=== PATIENT | female | born 1950 | race Caucasian/White ===

== ENCOUNTER → 2017-02-21 | Outpatient (CLI) | payer MEDICARE | LOC: OD 11:08 | PROVIDERS: ATTEND Physician Assistant | DX: M79.672 Pain in left foot (principal) ==

== ENCOUNTER → 2017-05-21 | Outpatient (CLI) | payer MEDICARE ==
--- NOTE | 2017-05-21 10:21 | RADIOLOGY REPORT (SQ) ---
EXAM DESCRIPTION: CT HEAD WITHOUT COMPLETED DATE/TIME: 05/21/2017 9:47 am REASON FOR STUDY: TREMOR R25.1 TREMOR, UNSPECIFIED COMPARISON: None. TECHNIQUE: Axial images acquired through the brain without intravenous contrast. Images reviewed wi th bone, brain and subdural windows. Images stored on PACS. All CT scanners at this facility use dose modulation, iterative reconstruction, and/or weight based d osing when appropriate to reduce radiation dose to as low as reasonably achievable (ALARA). [facility]: Dose Right [facility]: CareDose [facility]: Dose Right [facility]: Teradose 4D [facility]: AppNexus RADIATION DOSE: Up-to-date CT equipment and radiation dose reduction techniques were employed. CTDIv ol: 49.0 mGy. DLP: 881 mGy-cm. mGy. LIMITATIONS: None. FINDINGS: VENTRICLES: Normal size and contour. CEREBRUM: There is a small lacunar infarct in the left thalamus. No masses. No hemorrhage. No mid line shift. Normal enamorado/white matter differentiation. No evidence for acute infarction. CEREBELLUM: No masses. No hemorrhage. No alteration of density. No evidence for acute infarction. EXTRAAXIAL SPACES: No fluid collections. No masses. ORBITS AND GLOBE: No intra- or extraconal masses. Normal contour of globe without masses. CALVARIUM: No fracture. PARANASAL SINUSES: No fluid or mucosal thickening. SOFT TISSUES: No mass or hematoma. OTHER: No other significant finding. IMPRESSION: Lacunar infarct in the left thalamus. There is no acute intracranial pathology. TECHNICAL DOCUMENTATION: JOB ID: [id number] Quality ID # [id number]: Final reports with documentation of one or more dose reduction techniques (e.g., Au tomated exposure control, adjustment of the mA and/or kV according to patient size, use of iterative reconstruction technique) 2010 [place]- All Rights Reserved
== END ==
LOC: RAD 09:33
PROVIDERS: ATTEND Family Medicine
DX: R25.1 Tremor, unspecified (principal)
CPT/HCPCS: 70450

== ENCOUNTER → 2017-12-20 | Outpatient (CLI) | payer MEDICARE ==
--- NOTE | 2017-12-20 16:35 | WOMENS IMAGING REPORT ---
EXAM DESCRIPTION: 3D SCREENING MAMMO BILAT COMPLETED DATE/TIME: 12/20/2017 1:17 pm REASON FOR STUDY: SCREENING MAMMO Z12.31 ENCNTR SCREEN MAMMOGRAM FOR MALIGNANT NEOPLASM OF CARMELA COMPARISON: 04/22/2015 and 03/02/2014. TECHNIQUE: Standard craniocaudal and mediolateral oblique views of each breast recorded using digita l acquisition and breast tomosynthesis. LIMITATIONS: None. FINDINGS: Findings present which are benign by mammographic criteria. No suspicious masses, calcifi cations or architectural distortion. Pertinent benign findings: Benign calcifications. Read with the assistance of CAD. .[facility] - R2 Cenova Version 1.3 .[facility] - R2 Cenova Version 1.3 .[facility] - R2 Cenova Version 2.4 .[facility] - R2 Cenova Version 2.4 .[facility] - R2 Concrete Pile Driver Operator Version 9.2 Benign mammographic findings may include one or more of the following: Smooth masses, popcorn/rim/co arse calcifications, asymmetries, post-procedure changes, and lesions with long-standing stability. IMPRESSION: BENIGN MAMMOGRAPHIC FINDINGS. BIRADS 2 BREAST DENSITY: c. The breasts are heterogeneously dense, which may obscure small masses. BIRAD: 2 BENIGN FINDING(S) RECOMMENDATION: RECOMMENDATION: ROUTINE SCREENING COMMENT: The patient has been notified of the results by letter per [place] requirements. Additional no tification policies are in place for contacting patient with suspicious or incomplete findings. Quality ID #[id number]: The [employer] recommends an annual screening mammogram for women aged 40 years or over. This facility utilizes a reminder system to ensure that all patients receive reminder letters, and/or direct phone calls for appointments. This includes reminders for routine scr eening mammograms, diagnostic mammograms, or other Breast Imaging Interventions when appropriate. Th is patient will be placed in the appropriate reminder system. The [employer] (ACR) has developed recommendations for screening MRI of the breast s in certain patient populations, to be used in conjunction with mammography. Breast MRI surveillanc e may be appropriate for women with more than 20% lifetime risk of developing breast cancer as deter mined by genetic testing, significant family history of the disease, or history of mantle radiation f or Hodgkins Disease. ACR Practice Guidelines 2008. DBT Technology DBT is a type of tomographic mammography. With conventional mammography, overlapping breast tissue ma y make lesions difficult to detect, even with good compression. DBT uses an x-ray tube that rotates a round the breast, taking images at different angles. These images are then combined to create thin sl ices of the breast that the radiologist can view as a 3D reconstruction. The [id number] unit can perform full-field digital mammograms (2D imaging); or DBT (3D imaging); or both, in a combination mode that quickly performs both the mammogram and the tomosynthesis scan while the breast is still compressed. PQRS 6045F: Fluoroscopic imaging is not utilized for breast tomosynthesis. TECHNICAL DOCUMENTATION: FINDING NUMBER: (1) ASSESSMENT: (1) JOB ID: [id number] [employer]- All Rights Reserved Reading location - IP/workstation name: [email or web address]
== END ==
LOC: WI 11:24
PROVIDERS: ATTEND Obstetrics & Gynecology
DX: Z12.31 Encounter for screening mammogram for malignant neoplasm of breast (principal)
CPT/HCPCS: 77063; 77067

== ENCOUNTER 2017-12-26 06:27 | Inpatient (IN) | payer MEDICARE ==
[2017-12-26] MEDS ORDERED: LEVOFLOXACIN 750 MG/D5W RTU 750 MG/150 ML RTUPB IV ONE (06:51)
[2017-12-26] MEDS ORDERED: ALBUTEROL SULFATE 0.083% NEB 2.5 MG/3 ML AMPUL NEB ONE (06:51)
[2017-12-26] MEDS ORDERED: NORMAL SALINE 1000 ML 1,000 ML IV ONE ×2 (06:51→20:45)
--- NOTE | 2017-12-26 06:51 | ER Document Report ---
ED Respiratory Problem - General Mode of Arrival: Medic Information source: Patient, Relative TRAVEL OUTSIDE OF THE [place] IN LAST 30 DAYS: No <CAMILO MCCAULEY - Last Filed: 12/26/17 15:08> <EVELIN GRESHAM - Last Filed: 12/26/17 15:11> - General Chief Complaint: Respiratory Distress Stated Complaint: RESPIRATORY DISTRESS Time Seen by Provider: 12/26/17 06:35 Notes: Patient is a 67 year old female with a history of COPD presents to the emergency department via EMS accompanied by complaining of difficulty breathing. Patient states that she has had a non-productive cough for approximately 1-2 weeks and went to the doctor yesterday and was prescribed antibiotics. further states he called the ambulance again this morning due to the patient behaving slower than normal, incontinent and being weak at home. He states the patient had a fever of 104 and a SpO2 in the 80s at home. Patient also complains of nausea. Patient denies sore throat, diarrhea or abdominal pain. At bedside patient appears uncomfortable and is a poor historian. states he gave the patient Tylenol at home. further states he called the ambulance twice yesterday and insisted they bring the patient to the emergency room this morning due to her worsening symptoms. (CAMILO MCCAULEY) - Related Data Allergies/Adverse Reactions: latex [Latex] Allergy (Verified 12/26/17 06:37) rash amoxicillin [Amoxicillin] Adverse Reaction (Verified 12/26/17 06:37) Nausea budesonide [From Symbicort] Adverse Reaction (Verified 12/26/17 06:37) Nausea cephalexin [From Keflex] Adverse Reaction (Verified 12/26/17 06:37) Nausea formoterol [From Symbicort] Adverse Reaction (Verified 12/26/17 06:37) Nausea Penicillins Adverse Reaction (Verified 12/26/17 06:37) Nausea sulfamethoxazole [From Bactrim] Adverse Reaction (Verified 12/26/17 06:37) nausea/ weakness trimethoprim [From Bactrim] Adverse Reaction (Verified 12/26/17 06:37) nausea/ weakness erythromycin Allergy (Uncoded 12/26/17 06:37) Past Medical History - General Information source: Patient, Relative - Social History Smoking Status: Current Every Day Smoker Cigarette use (# per day): Yes Chew tobacco use (# tins/day): No Smoking Education Provided: No Frequency of alcohol use: None Family History: Reviewed & Not Pertinent - Past Medical History Cardiac Medical History: Reports: Hx Hypercholesterolemia, Hx Hypertension Neurological Medical History: Reports: Hx Migraine GI Medical History: Reports: Hx Diverticulitis Musculoskeltal Medical History: Reports Hx Arthritis Psychiatric Medical History: Reports: Hx Anxiety, Hx Depression Past Surgical History: Reports: Hx Colostomy, Hx Hysterectomy - Immunizations Immunizations up to date: Yes Hx Diphtheria, Pertussis, Tetanus Vaccination: No <CAMILO MCCAULEY - Last Filed: 12/26/17 15:08> Review of Systems - Review of Systems Constitutional: See HPI, Fever EENT: No symptoms reported Cardiovascular: No symptoms reported Respiratory: See HPI, Short of breath Gastrointestinal: No symptoms reported Genitourinary: See HPI, Incontinence Female Genitourinary: No symptoms reported Musculoskeletal: No symptoms reported Skin: No symptoms reported Hematologic/Lymphatic: No symptoms reported Neurological/Psychological: See HPI, Weakness -: Yes All other systems reviewed and negative <CAMILO MCCAULEY - Last Filed: 12/26/17 15:08> Physical Exam <CAMILO MCCAULEY - Last Filed: 12/26/17 15:08> <EVELIN GRESHAM - Last Filed: 12/26/17 15:11> - Vital signs Vitals: Temp Pulse Resp BP Pulse Ox 98.0 F 106 H 26 H 89/57 L 90 L 12/26/17 06:33 12/26/17 06:33 12/26/17 06:33 12/26/17 06:33 12/26/17 06:33 - Notes Notes: GENERAL: Appears fatigued, hoarse, slow to answer questions. HEAD: Normocephalic, atraumatic. EYES: Pupils equal, round, and reactive to light. Extraocular movements intact. ENT: Oral mucosa moist, tongue midline. NECK: Full range of motion. Supple. Trachea midline. LUNGS: Crackles and rhonchi in right lower lobe. Becomes tachypneic with minimal exertion. HEART: Regular rate and rhythm. No murmurs, gallops, or rubs. ABDOMEN: Soft, non-tender. Non-distended. Bowel sounds present in all 4 quadrants. EXTREMITIES: Moves all 4 extremities spontaneously. No edema, radial and dorsalis pedis pulses 2/4 bilaterally. No cyanosis. NEUROLOGICAL: Appears fatigued. Normal speech, hoarse voice. PSYCH: Flat affect, somewhat depressed. SKIN: Warm, dry, normal turgor. No rashes or lesions noted. (CAMILO MCCAULEY) Course - Laboratory Result Diagrams: 12/26/17 10:51 12/26/17 10:51 - Consults Dr. Bermudez Time consulted: 08:52 - Accpets patient for admission to ICU. <CAMILO MCCAULEY - Last Filed: 12/26/17 15:08> - Laboratory Result Diagrams: 12/26/17 10:51 12/26/17 10:51 <EVELIN GRESHAM - Last Filed: 12/26/17 15:11> - Re-evaluation Re-evalutation: 12/26/17 08:57 CBC shows leukopenia with white count of 1.6, there is a bandemia with 6% bands , INR slightly prolonged at 1.07, venous blood gas does not show any acidosis, PCO2 is actually surprisingly low at 27.3, likely due to her tachypnea, chemistries are abnormal with low sodium of 127.3, potassium low at 3.3, chloride low at 94, CO2 low at 17, there is acute renal failure with a BUN of 25 and creatinine 1.36, lactic acid elevated at 4.0, patient meets criteria for septic shock, patient has been started on dual antibiotic therapy in the form of vancomycin and Levaquin, penicillins and cephalosporins were not used as she is allergic to both of these, urinalysis does not show any signs of infection, chest x-ray shows moderate to large airspace opacities of the right lower and midlung field and small left perihilar opacity consistent with multifocal pneumonia. Doubt pulmonary edema given fever and ongoing cough. No indication for pressors at this time, but I will continue to consider pressors if the patient fails fluid rehydration. Discussed patient with Dr. Bermudez who agrees to admit the patient to his service in the intensive care unit. Family requests intubation should she fail BiPAP. Patient was started on BiPAP as she did not respond well to 4 L of oxygen via nasal cannula. 12/26/17 15:10 After patient had already been accepted for admission she continued to worsen, discussed with Dr. Bermudez and Dr. Calix seen, after reexamination decision was made to intubate as she was becoming more restless, more tachypneic, hypoxic despite 100% oxygen on BiPAP. Patient was intubated without difficulty. (EVELIN GRESHAM) - Vital Signs Vital signs: Temp Pulse Resp BP Pulse Ox 103.3 F H 116 H 20 84/83 L 93 12/26/17 14:00 12/26/17 14:00 12/26/17 13:17 12/26/17 14:00 12/26/17 14:00 - Laboratory Laboratory results interpreted by me: 12/26/17 12/26/17 12/26/17 06:30 06:30 06:30 WBC 1.6 L Band Neutrophils % 6 H Abs Neuts (Manual) 0.8 L VBG pCO2 VBG HCO3 Sodium 127.5 L Potassium 3.3 L Chloride 94 L Carbon Dioxide 17 L BUN 25 H Creatinine 1.36 H Est GFR ( Amer) 47 L Est GFR (Non-Af Amer) 39 L Lactic Acid 4.0 H Creatine Kinase Total Protein 5.6 L Albumin 3.4 L Urine Protein Urine Blood 12/26/17 12/26/17 12/26/17 06:30 06:30 08:15 WBC Band Neutrophils % Abs Neuts (Manual) VBG pCO2 27.3 L VBG HCO3 16.8 L Sodium Potassium Chloride Carbon Dioxide BUN Creatinine Est GFR ( Amer) Est GFR (Non-Af Amer) Lactic Acid Creatine Kinase 309 H Total Protein Albumin Urine Protein 100 H Urine Blood SMALL H - EKG Interpretation by Me Additional EKG results interpreted by me: 12/26/17 08:59 EKG shows sinus rhythm at a rate of 98, first-degree AV block, prolonged QT, no ST segment elevations or depressions, no T-wave inversions, LVH is noted per my interpretation. (EVELIN GRESHAM) Procedures - Intubation Orotracheal Time of Intubation: 10:40 Airway evaluation: Copious secretions - bloody secretions, Loose teeth, Other - edema of chords Medications: Etomidate, Versed Intubation method: Orotracheal Blade type: Mary Blade size: 4 ETT size: 8.0 ETT secured at: Gums ETT secured at (cm): 21 Breath Sounds after Intubation: Equal End tidal CO2 confirmed: Yes Intubation Complications: No complications <CAMILO MCCAULEY - Last Filed: 12/26/17 15:08> - Intubation Orotracheal Mallampati Classification: Class 2 Post Intubation Xray: Yes - Confirms placement, in good position. <EVELIN GRESHAM - Last Filed: 12/26/17 15:11> - Intubation Orotracheal Notes: 12/26/17 15:[address] Morejon's orders. (EVELIN GRESHAM) Critical Care Note - Critical Care Note Total time excluding time spent on procedures (mins): 55 <EVELIN GRESHAM - Last Filed: 12/26/17 15:11> Discharge <CAMILO MCCAULEY - Last Filed: 12/26/17 15:08> - Discharge Admitting Provider: Merged With [facility] Unit Admitted: ICU <EVELIN GRESHAM - Last Filed: 12/26/17 15:11> - Discharge Clinical Impression: Multifocal pneumonia, COPD with acute exacerbation, Septic shock, Acute respiratory failure with hypoxia Condition: Critical Disposition: ADMITTED INPATIENT Scribe Attestation: 12/26/17 15:11 I personally performed the services described in the documentation, reviewed and edited the documentation which was dictated to the scribe in my presence, and it accurately records my words and actions. (EVELIN GRESHAM) Scribe Documentation - Scribe Written by Scribe:: Gene Del Rosario, 12/26/2017 07:24 acting as scribe for :: Anirudh <CAMILO MCCAULEY - Last Filed: 12/26/17 15:08> Sepsis <CAMILO MCCAULEY - Last Filed: 12/26/17 15:08> - Sepsis Documentation Sepsis Patient: Yes - Cardiovascular Peripheral Pulse Strength: Normal Capillary refill: < 3 seconds Rhythm: Tachycardia Heart Sounds: Normal auscultation - Respiratory Breath Sounds: Rhonchi - Right lower lobe Respiratory Status: Tachypnea - Skin Skin Color: Normal <EVELIN GRESHAM - Last Filed: 12/26/17 15:11> - Vital Signs Vitals: Temp Pulse Resp BP Pulse Ox 103.3 F H 116 H 20 84/83 L 93 12/26/17 14:00 12/26/17 14:00 12/26/17 13:17 12/26/17 14:00 12/26/17 14:00 Please disregard the vital signs above, current vital signs at 9 AM are sinus tachycardia at a rate of 100, pressure is normalized with blood pressure of 122/ 75, normal oxygenation with a pulse ox of 97% on BiPAP with an FiO2 of 40%. Please see nursing notes for repeat temperature at this time as well as respirations. (EVELIN GRESHAM)
[2017-12-26] MEDS ORDERED: METHYLPREDNISOLONE INJ 125 MG/2 ML SDV IV ONE (07:08)
[2017-12-26 07:15] LABS: HEMATOCRIT 36.1 % (36.0-47.0); HEMOGLOBIN 12.2 g/dL (12.0-15.5); MEAN CORPUSCULAR HEMOGLOBIN 28.8 pg (27.0-33.4); MEAN CORPUSCULAR HGB CONC 33.8 g/dL (32.0-36.0); MEAN CORPUSCULAR VOLUME 85 fl (80-97); PLATELET COUNT 211 10^3/uL (150-450); RED BLOOD COUNT 4.24 10^6/uL (3.72-5.28); RED CELL DISTRIBUTION WIDTH 13.7 % (11.5-14.0); WHITE BLOOD COUNT 1.6 10^3/uL (4.0-10.5)
--- NOTE | 2017-12-26 07:16 | EKG REPORT ---
SEVERITY:- ABNORMAL ECG - SINUS RHYTHM WITH PAC PROBABLE LEFT VENTRICULAR HYPERTROPHY BORDERLINE INFERIOR Q WAVES PROLONGED QT INTERVAL : Confirmed by: Skinny Salazar MD 26-Dec-2017 07:15:41
[2017-12-26 07:18] LABS: VENOUS BLOOD BASE EXCESS -5.6 mmol/L; VENOUS BLOOD HCO3 16.8 mmol/L (20-32); VENOUS BLOOD PCO2 27.3 mmHg (35-63); VENOUS BLOOD PH 7.41 (7.30-7.42)
[2017-12-26 07:22] LABS: INTERNATIONAL RATION (INR) 1.07; PROTHROMBIN TIME 14.6 SEC (11.4-15.4)
[2017-12-26 07:31] LABS: ALANINE AMINOTRANSFERASE 19 U/L (9-52); ALBUMIN 3.4 g/dL (3.5-5.0); ALKALINE PHOSPHATASE 98 U/L (38-126); ANION GAP 17 (5-19); ASPARTATE AMINO TRANSFERASE 33 U/L (14-36); BILIRUBIN,DIRECT 0.3 mg/dL (0.0-0.4); BILIRUBIN,TOTAL 0.8 mg/dL (0.2-1.3); BLOOD UREA NITROGEN 25 mg/dL (7-20); CALCIUM 8.5 mg/dL (8.4-10.2); CARBON DIOXIDE 17 mmol/L (22-30); CHLORIDE 94 mmol/L (98-107); GLUCOSE 100 mg/dL (75-110); POTASSIUM 3.3 mmol/L (3.6-5.0); SODIUM 127.5 mmol/L (137-145); TOTAL PROTEIN 5.6 g/dL (6.3-8.2)
[2017-12-26 07:44] LABS: ABSOLUTE LYMPHOCYTES# (MANUAL) 0.6 10^3/uL (0.5-4.7); ABSOLUTE MONOCYTES # (MANUAL) 0.2 10^3/uL (0.1-1.4); ABSOLUTE NEUTROPHILS# (MANUAL) 0.8 10^3/uL (1.7-8.2); BAND NEUTROPHILS % (MANUAL) 6 % (3-5); BASOPHILS % (MANUAL) 0 % (0-2); EOSINOPHILS % (MANUAL) 0 % (0-6); LYMPHOCYTES % (MANUAL) 30 % (13-45); MONOCYTES % (MANUAL) 12 % (3-13); SEGMENTED NEUTROPHILS % (MAN) 44 % (42-78); TOTAL CELLS COUNTED 50
[2017-12-26 07:45] LABS: PLATELET COMMENT ADEQUATE; RBC MORPHOLOGY COMMENT NORMO-CYTIC/CHROMIC
--- NOTE | 2017-12-26 07:48 | RADIOLOGY REPORT (SQ) ---
EXAM DESCRIPTION: CHEST SINGLE VIEW CLINICAL HISTORY: 67 years Female, RLL rhonchi COMPARISON: January 28, 2014 NUMBER OF VIEWS/TECHNIQUE: 1/AP LIMITATIONS: None. FINDINGS: Moderate-large airspace opacities of the right lower and mid lung field and small left perihilar opacity, small chronic deformity of the left posterior mid rib, left total shoulder arthroplasty. No pneumothorax. No acute bone defect. Atherosclerosis. IMPRESSION: Multifocal pneumonia and/or pulmonary edema pattern worst in the right mid and lower lung.
[2017-12-26 08:33] LABS: APPEARANCE,URINE SLIGHTLY-CLOUDY; BILIRUBIN,URINE NEGATIVE (NEGATIVE); COLOR,URINE YELLOW; GLUCOSE, URINE NEGATIVE (NEGATIVE); KETONES,URINE NEGATIVE (NEGATIVE); LEUKOCYTE ESTERASE,URINE NEGATIVE (NEGATIVE); NITRITE,URINE NEGATIVE (NEGATIVE); PROTEIN,URINE 100 mg/dL (NEGATIVE); UROBILINOGEN,URINE NEGATIVE mg/dL (<2.0)
[2017-12-26] MEDS ORDERED: RINGERS SOLUTION,LACTATED 1,000 ML IV ONE (08:48)
[2017-12-26] MEDS ORDERED: NORMAL SALINE 1000 ML 1,000 ML IV PRN (08:52)
[2017-12-26] MEDS ORDERED: VANCOMYCIN HCL INJ 1000 MG VIAL IV ONE (08:52)
[2017-12-26] MEDS ORDERED: ACETAMINOPHEN 325 MG TABLET PO PRN (08:52)
[2017-12-26] MEDS ORDERED: VANCOMYCIN HCL 0 MG in DEXTROSE 5%-WATER 250 ML IV NR (09:00)
[2017-12-26 09:47] LABS: CREATINE KINASE MB 2.06 ng/mL (<4.55)
[2017-12-26 09:52] LABS: TROPONIN I < 0.012 ng/mL
[2017-12-26] MEDS ORDERED: MIDAZOLAM 2 MG/2 ML INJ IV ONE (09:57)
[2017-12-26] MEDS ORDERED: FAMOTIDINE INJ/PF 20 MG/2 ML SDV IV SCH ×2 (10:00→18:00)
[2017-12-26] MEDS ORDERED: MIDAZOLAM 2 MG/2 ML INJ ONE (10:03)
[2017-12-26] MEDS ORDERED: ETOMIDATE INJ/PF 20 MG/10 ML SDV IV ONE ×2 (10:13→10:17)
[2017-12-26] MEDS ORDERED: VECURONIUM BROMIDE INJ 10 MG VIAL IV ONE ×2 (10:14→10:17)
[2017-12-26] MEDS ORDERED: MIDAZOLAM HCL 50 MG/100 ML RTUINJ IV ONE (10:17)
[2017-12-26] MEDS ORDERED: MIDAZOLAM HCL 50 MG/100 ML RTUINJ IV PRN (10:17)
[2017-12-26] MEDS ORDERED: OSELTAMIVIR PHOSPHATE 75 MG CAPSULE PO ONE (11:00)
[2017-12-26 11:20] LABS: HEMATOCRIT 31.6 % (36.0-47.0); HEMOGLOBIN 10.6 g/dL (12.0-15.5); MEAN CORPUSCULAR HGB CONC 33.4 g/dL (32.0-36.0); MEAN CORPUSCULAR VOLUME 87 fl (80-97); PLATELET COUNT 205 10^3/uL (150-450); RED BLOOD COUNT 3.65 10^6/uL (3.72-5.28); RED CELL DISTRIBUTION WIDTH 13.6 % (11.5-14.0)
[2017-12-26 11:26] LABS: INTERNATIONAL RATION (INR) 1.25; PARTIAL THROMBOPLASTIN TIME 40.4 SEC (23.5-35.8); PROTHROMBIN TIME 16.5 SEC (11.4-15.4)
[2017-12-26] MEDS: IPRATROPIUM/ALBUTEROL 0.5-2.5 MG/3 ML AMPUL NEB SCH ×3 (11:35→21:03)
[2017-12-26 11:41] LABS: ABSOLUTE LYMPHOCYTES# (MANUAL) 0.5 10^3/uL (0.5-4.7); ABSOLUTE MONOCYTES # (MANUAL) 0.1 10^3/uL (0.1-1.4); ABSOLUTE NEUTROPHILS# (MANUAL) 0.5 10^3/uL (1.7-8.2); ALANINE AMINOTRANSFERASE 16 U/L (9-52); ALBUMIN 2.4 g/dL (3.5-5.0); ALKALINE PHOSPHATASE 56 U/L (38-126); ANION GAP 9 (5-19); ASPARTATE AMINO TRANSFERASE 34 U/L (14-36); BAND NEUTROPHILS % (MANUAL) 8 % (3-5); BASOPHILS % (MANUAL) 0 % (0-2); BILIRUBIN,DIRECT 0.3 mg/dL (0.0-0.4); BILIRUBIN,TOTAL 0.3 mg/dL (0.2-1.3); BLOOD UREA NITROGEN 23 mg/dL (7-20); CARBON DIOXIDE 21 mmol/L (22-30); CHLORIDE 102 mmol/L (98-107); CREATINE KINASE 430 U/L (30-135); EOSINOPHILS % (MANUAL) 0 % (0-6); GLUCOSE 92 mg/dL (75-110); LYMPHOCYTES % (MANUAL) 42 % (13-45); METAMYELOCYTES % (MANUAL) 2 % (0); MONOCYTES % (MANUAL) 12 % (3-13); POTASSIUM 3.2 mmol/L (3.6-5.0); SEGMENTED NEUTROPHILS % (MAN) 36 % (42-78); SODIUM 132.1 mmol/L (137-145); TOTAL CELLS COUNTED 50; TOTAL PROTEIN 4.8 g/dL (6.3-8.2)
[2017-12-26 11:43] LABS: PLATELET CLUMPS PRESENT; PLATELET COMMENT ADEQUATE; PLATELET GIANT PRESENT; PLATELET LARGE PRESENT
[2017-12-26 11:45] LABS: WHITE BLOOD COUNT 1.1 10^3/uL (4.0-10.5)
--- NOTE | 2017-12-26 11:49 | RADIOLOGY REPORT (SQ) ---
EXAM DESCRIPTION: CHEST SINGLE VIEW COMPLETED DATE/TIME: 12/26/2017 11:31 am REASON FOR STUDY: intubation COMPARISON: 12/26/2017 at 0724 hours. EXAM PARAMETERS: NUMBER OF VIEWS: One view. TECHNIQUE: Single frontal radiographic view of the chest acquired. RADIATION DOSE: NA LIMITATIONS: None. FINDINGS: LUNGS AND PLEURA: Bilateral infiltrates, right greater than left. May be slightly worse i n the right lung. MEDIASTINUM AND HILAR STRUCTURES: No masses. Contour normal. HEART AND VASCULAR STRUCTURES: Heart normal in size. Normal vasculature. BONES: No acute findings. HARDWARE: Endotracheal tube with the tip located 4 cm proximal to the torie. Nasogastric tube with the tip in the stomach. Left shoulder prosthesis. OTHER: No other significant finding. IMPRESSION: LIFE LINES DESCRIBED. BILATERAL PULMONARY INFILTRATES, RIGHT GREATER THAN LEFT. TECHNICAL DOCUMENTATION: JOB ID: [id number] [employer]- All Rights Reserved Reading location - IP/workstation name: [email or web address]
[2017-12-26 11:51] LABS: CREATINE KINASE MB 2.52 ng/mL (<4.55); TROPONIN I 0.013 ng/mL
--- NOTE | 2017-12-26 12:59 | PDOC PROGRESS REPORT ---
Bedside Procedure - History of Present Illness History of Present Illness: sepsis poor venous access - Central Line Right Internal jugular Time completed: 12:58 Consent obtained: Yes Central line pre-insertion: Sterile PPE donned, Betadine prep applied, Chloraprep applied, Sterile drapes applied Central line lumen type: Triple Anesthetic type: 1% Lidocaine Ultrasound guided: Yes Line secured with sutures: Yes Central line post-insertion: Blood return from lumens, Biopatch applied, Sutured , Sterile dressing applied, Position confirmed w/ CXR Complications: No
--- NOTE | 2017-12-26 13:05 | PDOC CONSULTATION ---
Consultation Consult Date: 12/26/17 Attending physician:: ANA MARIA DAWKINS Consult reason:: acute/chronic resp failure/pna History of Present Illness Admission Date/PCP: 12/26/17 09:12 ANA MARIA DAWKINS MD History of Present Illness: sepsis poor venous access Past Medical History Cardiac Medical History: Reports: Hyperlipidema, Hypertension Neurological Medical History: Reports: Migraine GI Medical History: Reports: Diverticulitis Musculoskeltal Medical History: Reports: Arthritis Psychiatric Medical History: Reports: Depression Past Surgical History Past Surgical History: Reports: Colostomy, Hysterectomy Social History Smoking Status: Current Every Day Smoker - Advance Directive Resuscitation Status: Full Code Family History Parental Family History Reviewed: No Children Family History Reviewed: No Sibling(s) Family History Reviewed.: No Medication/Allergy Home Medications: Amlodipine Besylate [Norvasc 10 mg Tablet] 10 mg PO DAILY 12/26/17 Atorvastatin Calcium [Lipitor 40 mg Tablet] 40 mg PO DAILY 12/26/17 Cetirizine HCl [Zyrtec 10 mg Tablet] 10 mg PO DAILYP PRN 12/26/17 Clopidogrel Bisulfate [Plavix 75 mg Tablet] 75 mg PO DAILY 12/26/17 Fluticasone Propionate [Flonase Nasal Gall[place] 50 Mcg/Gall[place] 16 gm] 1 spray NASL DAILY 12/26/17 Hydroxyzine HCl [Atarax 25 mg Tablet] 25 mg PO BID 12/26/17 Lorazepam [Ativan 1 mg Tablet] 1 mg PO TID 12/26/17 Losartan Potassium [Cozaar 100 mg Tablet] 100 mg PO DAILY 12/26/17 Metoprolol Tartrate [Lopressor 50 mg Tablet] 50 mg PO BID 12/26/17 Ondansetron HCl [Zofran 4 mg Tablet] 4 mg PO Q6HP PRN 12/26/17 Quetiapine Fumarate [Seroquel] 50 mg PO DAILY 12/26/17 Ropinirole HCl [Requip] 1 mg PO QHS 12/26/17 Spironolactone [Aldactone 25 mg Tablet] 12.5 mg PO BID 12/26/17 Tolterodine Tartrate [Detrol LA] 2 mg PO DAILY 12/26/17 Tramadol HCl [Ultram 50 mg Tablet] 50 mg PO Q6HP PRN 12/26/17 Triamcinolone Acetonide [Aristocort 0.5% Cream 15 gm] 1 applic TP BID 12/26/17 Venlafaxine HCl ER [Effexor Xr 75 mg Cap.sr] 75 mg PO BID 12/26/17 Allergies/Adverse Reactions: latex [Latex] Allergy (Verified 12/26/17 06:37) rash amoxicillin [Amoxicillin] Adverse Reaction (Verified 12/26/17 06:37) Nausea budesonide [From Symbicort] Adverse Reaction (Verified 12/26/17 06:37) Nausea cephalexin [From Keflex] Adverse Reaction (Verified 12/26/17 06:37) Nausea formoterol [From Symbicort] Adverse Reaction (Verified 12/26/17 06:37) Nausea Penicillins Adverse Reaction (Verified 12/26/17 06:37) Nausea sulfamethoxazole [From Bactrim] Adverse Reaction (Verified 12/26/17 06:37) nausea/ weakness trimethoprim [From Bactrim] Adverse Reaction (Verified 12/26/17 06:37) nausea/ weakness erythromycin Allergy (Uncoded 12/26/17 06:37) Review of Systems ROS unobtainable: Due to mental status Physical Exam Vital Signs: Temp Pulse Resp BP Pulse Ox 98.0 F 114 H 20 89/57 L 98 12/26/17 06:33 12/26/17 11:31 12/26/17 11:31 12/26/17 06:33 12/26/17 11:45 Intake & Output 12/25/17 12/26/17 12/27/17 06:59 06:59 06:59 Weight 61.9 kg General appearance: PRESENT: disheveled, mild distress, thin. ABSENT: cooperative Head exam: PRESENT: atraumatic, normocephalic Eye exam: PRESENT: conjunctiva pale, EOMI. ABSENT: nystagmus, periorbital swelling, scleral icterus Mouth exam: PRESENT: dry mucosa, neck supple, tongue midline, other - ET tube Neck exam: ABSENT: carotid bruit, JVD, lymphadenopathy, thyromegaly, tracheal deviation, tracheostomy Respiratory exam: PRESENT: crackles, decreased breath sounds, prolonged expiratory phas, rhonchi, symmetrical, tachypnea, wheezes. ABSENT: rales, retraction, stridor, unlabored Cardiovascular exam: PRESENT: RRR, +S1, +S2 Pulses: PRESENT: normal radial pulses GI/Abdominal exam: PRESENT: diminished bowel sounds, soft Extremities exam: ABSENT: calf tenderness, clubbing, joint swelling Musculoskeletal exam: ABSENT: deformity, dislocation Neurological exam: PRESENT: awake Skin exam: PRESENT: dry, warm Results Laboratory Results: 12/26/17 10:51 12/26/17 10:51 12/26/17 12/26/17 12/26/17 10:22 10:51 10:51 WBC 1.1 L* RBC 3.65 L Hgb 10.6 L Hct 31.6 L MCV 87 MCH 29.0 MCHC 33.4 RDW 13.6 Plt Count 205 Seg Neutrophils % Not Reportable Lymphocytes % Not Reportable Monocytes % Not Reportable Eosinophils % Not Reportable Basophils % Not Reportable Absolute Neutrophils Not Reportable Absolute Lymphocytes Not Reportable Absolute Monocytes Not Reportable Absolute Eosinophils Not Reportable Absolute Basophils Not Reportable Sodium 132.1 L Potassium 3.2 L Chloride 102 Carbon Dioxide 21 L Anion Gap 9 BUN 23 H Creatinine 1.16 Est GFR ( Amer) 56 L Est GFR (Non-Af Amer) 46 L Glucose 92 Lactic Acid 3.0 H Calcium 7.0 L* Total Bilirubin 0.3 AST 34 ALT 16 Alkaline Phosphatase 56 Total Protein 4.8 L Albumin 2.4 L 12/26/17 12/26/17 10:51 10:51 Creatine Kinase 430 H CK-MB (CK-2) 2.52 Troponin I 0.013 Impressions: Chest X-Ray 12/26/17 06:52 IMPRESSION: Multifocal pneumonia and/or pulmonary edema pattern worst in the right mid and lower lung. Assessment & Plan - Diagnosis (1) Acute and chronic respiratory failure Is this a current diagnosis for this admission?: Yes Plan: requires intubation kell (2) Multifocal pneumonia Is this a current diagnosis for this admission?: Yes Plan: et aspirate g stain c&s (3) Septic shock Is this a current diagnosis for this admission?: Yes Plan: volume neosynephrine prn
--- NOTE | 2017-12-26 13:28 | RADIOLOGY REPORT (SQ) ---
EXAM DESCRIPTION: CHEST SINGLE VIEW COMPLETED DATE/TIME: 12/26/2017 1:06 pm REASON FOR STUDY: CENTRAL LINE PLACEMENT COMPARISON: 12/26/2017 EXAM PARAMETERS: NUMBER OF VIEWS: One view. TECHNIQUE: Single frontal radiographic view of the chest acquired. RADIATION DOSE: NA LIMITATIONS: None. FINDINGS: LUNGS AND PLEURA: Considerable infiltrates are seen in the mid and right lower lung and in the left perihilar region. The endotracheal tube and NG tube remain in place. A right internal jug ular catheter is present with the tip in the superior vena cava. There is no pneumothorax. There is considerable lucency in the lung apices. MEDIASTINUM AND HILAR STRUCTURES: No masses. Contour normal. HEART AND VASCULAR STRUCTURES: Heart normal in size. Normal vasculature. BONES: No acute findings. HARDWARE: Endotracheal tube and NG tube remain in position. Right internal jugular catheter has its tip in the superior vena cava. OTHER: No other significant finding. IMPRESSION: 1. Multicentric pneumonia much more prominent in the right lung than the left. 2. Central line placement. 3. Emphysematous changes are suggested in the lung apices. TECHNICAL DOCUMENTATION: JOB ID: [id number] [employer]- All Rights Reserved Reading location - IP/workstation name: [email or web address]
[2017-12-26] MEDS ORDERED: NORMAL SALINE INJ/PF 0.9% 10 ML SDV IV PRN (13:41)
[2017-12-26 13:43] LABS: ARTERIAL BLOOD BASE EXCESS -9.6 mmol/L; ARTERIAL BLOOD FIO2 90%; ARTERIAL BLOOD H2CO3 1.55 mmol/L (1.05-1.35); ARTERIAL BLOOD HCO3 18.7 mmol/L (20-26); ARTERIAL BLOOD O2 SATURATION 89.8 % (94-98); ARTERIAL BLOOD PCO2 51.5 mmHg (35-45); ARTERIAL BLOOD PO2 70.8 mmHg (80-100); ARTERIAL BLOOD TOTAL CO2 20.3 mmol/L (21-25)
[2017-12-26 13:46] LABS: ARTERIAL BLOOD PH 7.18 (7.35-7.45)
--- NOTE | 2017-12-26 13:46 | PDOC H&P ---
History of Present Illness Admission Date/PCP: 12/26/17 09:12 ANA MARIA DAWKINS MD Patient complains of: Fever cough congestion History of Present Illness: This 67-year-old females with a significant history of the hypertension's hyperlipidemia significant anxiety disorder history of the COPD chronic smoker came to see yesterday in the office with a complaining of sore throat and a low- grade fever and patient was started on a Z-Mendez and patients at this point call back and says she is feeling short of breath in the evening time and directed to the emergency department to go but patients came this morningWith the complaining of her shortness of the breath and patient was found hypotensive's and septic shock and the patient's was intubated in the ER Patient's white count is 1.6 but patient's lactic acid is more than 4 Patient's chest x-ray was stable He did not take a flu shot this year According to the patient's when he give her Tylenol patient's fever come down and feel better but this morning patients feel more sick and just recently brought to the patient in the ER When I saw the patient in ER before the intubation patient was alert awake but a little anxious but patient's respiratory rate was 30+ Patient's denied any chest pain Patient's family and the bedside Patient also see a [facility] and recently have a stress test was done at 3 months back was all stable and her echocardiogram was done Patient also see a [facility] vascular surgeon for the carotid disease and peripheral vascular disease Past Medical History Cardiac Medical History: Reports: Hyperlipidema, Hypertension, Heart Murmur Cardiac History Note: Aortic stenosis Pulmonary Medical History: Reports: Chronic Obstructive Pulmonary Disease (COPD) Neurological Medical History: Reports: Ischemic CVA, Migraine GI Medical History: Reports: Diverticulitis Musculoskeltal Medical History: Reports: Arthritis Psychiatric Medical History: Reports: Depression, General Anxiety Disorder Past Surgical History Past Surgical History: Reports: Colostomy, Hysterectomy Social History Smoking Status: Current Every Day Smoker Frequency of Alcohol Use: Occasional Hx Recreational Drug Use: No Hx Prescription Drug Abuse: No - Advance Directive Resuscitation Status: Full Code Family History Family History: Reviewed & Not Pertinent Parental Family History Reviewed: Yes Children Family History Reviewed: Yes Sibling(s) Family History Reviewed.: Yes Medication/Allergy Home Medications: Amlodipine Besylate [Norvasc 10 mg Tablet] 10 mg PO DAILY 12/26/17 Atorvastatin Calcium [Lipitor 40 mg Tablet] 40 mg PO DAILY 12/26/17 Cetirizine HCl [Zyrtec 10 mg Tablet] 10 mg PO DAILYP PRN 12/26/17 Clopidogrel Bisulfate [Plavix 75 mg Tablet] 75 mg PO DAILY 12/26/17 Fluticasone Propionate [Flonase Nasal [place] 50 Mcg/[place] 16 gm] 1 spray NASL DAILY 12/26/17 Hydroxyzine HCl [Atarax 25 mg Tablet] 25 mg PO BID 12/26/17 Lorazepam [Ativan 1 mg Tablet] 1 mg PO TID 12/26/17 Losartan Potassium [Cozaar 100 mg Tablet] 100 mg PO DAILY 12/26/17 Metoprolol Tartrate [Lopressor 50 mg Tablet] 50 mg PO BID 12/26/17 Ondansetron HCl [Zofran 4 mg Tablet] 4 mg PO Q6HP PRN 12/26/17 Quetiapine Fumarate [Seroquel] 50 mg PO DAILY 12/26/17 Ropinirole HCl [Requip] 1 mg PO QHS 12/26/17 Spironolactone [Aldactone 25 mg Tablet] 12.5 mg PO BID 12/26/17 Tolterodine Tartrate [Detrol LA] 2 mg PO DAILY 12/26/17 Tramadol HCl [Ultram 50 mg Tablet] 50 mg PO Q6HP PRN 12/26/17 Triamcinolone Acetonide [Aristocort 0.5% Cream 15 gm] 1 applic TP BID 12/26/17 Venlafaxine HCl ER [Effexor Xr 75 mg Cap.sr] 75 mg PO BID 12/26/17 Allergies/Adverse Reactions: latex [Latex] Allergy (Verified 12/26/17 06:37) rash amoxicillin [Amoxicillin] Adverse Reaction (Verified 12/26/17 06:37) Nausea budesonide [From Symbicort] Adverse Reaction (Verified 12/26/17 06:37) Nausea cephalexin [From Keflex] Adverse Reaction (Verified 12/26/17 06:37) Nausea formoterol [From Symbicort] Adverse Reaction (Verified 12/26/17 06:37) Nausea Penicillins Adverse Reaction (Verified 12/26/17 06:37) Nausea sulfamethoxazole [From Bactrim] Adverse Reaction (Verified 12/26/17 06:37) nausea/ weakness trimethoprim [From Bactrim] Adverse Reaction (Verified 12/26/17 06:37) nausea/ weakness erythromycin Allergy (Uncoded 12/26/17 06:37) Review of Systems ROS unobtainable: Due to endotracheal tube, Due to mental status All systems: reviewed and no additional remarkable complaints except as stated Physical Exam Vital Signs: Temp Pulse Resp BP Pulse Ox 98.0 F 114 H 20 89/57 L 98 12/26/17 06:33 12/26/17 11:31 12/26/17 11:31 12/26/17 06:33 12/26/17 11:45 Intake & Output 12/25/17 12/26/17 12/27/17 06:59 06:59 06:59 Weight 61.9 kg Physical Exam: Patient was examined before the intubations General appearance: PRESENT: mild distress Eye exam: PRESENT: conjunctiva pink, PERRLA Mouth exam: PRESENT: dry mucosa Neck exam: ABSENT: carotid bruit, full ROM, JVD, lymphadenopathy, meningismus, tenderness, thyromegaly, tracheal deviation, tracheostomy, other Respiratory exam: PRESENT: decreased breath sounds, rales, tachypnea Cardiovascular exam: PRESENT: +S1, +S2 GI/Abdominal exam: PRESENT: normal bowel sounds, soft Extremities exam: ABSENT: pedal edema Neurological exam: PRESENT: alert, awake, oriented to person, oriented to place Psychiatric exam: PRESENT: anxious Skin exam: PRESENT: dry Results Laboratory Results: 12/26/17 10:51 12/26/17 10:51 12/26/17 12/26/17 12/26/17 10:22 10:51 10:51 WBC 1.1 L* RBC 3.65 L Hgb 10.6 L Hct 31.6 L MCV 87 MCH 29.0 MCHC 33.4 RDW 13.6 Plt Count 205 Seg Neutrophils % Not Reportable Lymphocytes % Not Reportable Monocytes % Not Reportable Eosinophils % Not Reportable Basophils % Not Reportable Absolute Neutrophils Not Reportable Absolute Lymphocytes Not Reportable Absolute Monocytes Not Reportable Absolute Eosinophils Not Reportable Absolute Basophils Not Reportable Sodium 132.1 L Potassium 3.2 L Chloride 102 Carbon Dioxide 21 L Anion Gap 9 BUN 23 H Creatinine 1.16 Est GFR ( Amer) 56 L Est GFR (Non-Af Amer) 46 L Glucose 92 Lactic Acid 3.0 H Calcium 7.0 L* Total Bilirubin 0.3 AST 34 ALT 16 Alkaline Phosphatase 56 Total Protein 4.8 L Albumin 2.4 L 12/26/17 12/26/17 10:51 10:51 Creatine Kinase 430 H CK-MB (CK-2) 2.52 Troponin I 0.013 Impressions: Chest X-Ray 12/26/17 06:52 IMPRESSION: Multifocal pneumonia and/or pulmonary edema pattern worst in the right mid and lower lung. Assessment & Plan - Diagnosis (1) Septic shock Is this a current diagnosis for this admission?: Yes Plan: Because of the hypotensive And fever and pneumonia and possible flu and multiple other etiology for the renal failure start the patient on IV fluid and the broad-spectrum IV antibiotic (2) Multifocal pneumonia Is this a current diagnosis for this admission?: Yes Plan: Start the patient in the Levaquin and vancomycin while patient on multiple drug allergies (3) Acute and chronic respiratory failure Is this a current diagnosis for this admission?: Yes Plan: Currently intubated follow with the pulmonary (4) Hypertension Qualifiers: Hypertension type: unspecified Qualified Code(s): I10 - Essential (primary ) hypertension Is this a current diagnosis for this admission?: Yes Plan: Currently running low (5) Anxiety disorder Qualifiers: Anxiety disorder type: generalized anxiety disorder Qualified Code(s): F41.1 - Generalized anxiety disorder Is this a current diagnosis for this admission?: Yes Plan: Start the patient on the BuSpar (6) Aortic stenosis Qualifiers: Cardiac valve disease etiology: nonrheumatic Qualified Code(s): I35.0 - Nonrheumatic aortic (valve) stenosis Is this a current diagnosis for this admission?: Yes Plan: Patient's currently see a cardiology at [facility], echo and a stress test was done within the last 3 months we will get the record from the [facility] (7) Smoker Is this a current diagnosis for this admission?: Yes (8) Carotid artery disorder Is this a current diagnosis for this admission?: Yes Plan: Patient also see a currently a vascular surgery at [facility] (9) Peripheral vascular disease Is this a current diagnosis for this admission?: Yes Plan: Patient's currently follow with the vascular surgery (10) COPD with acute exacerbation Is this a current diagnosis for this admission?: Yes Plan: Continues to nebulizer treatment - Time Time Spent: 50 to 70 Minutes Critical Time spent with patient: 25-34 minutes Medications reviewed and adjusted accordingly: Yes Anticipated discharge: Other Within: Other - Inpatient Certification Medical Necessity: Need Close Monitoring Due to Risk of Patient Decompensation, Need For IV Fluids, Need for IV Antibiotics Post Hospital Care: D/C Weight Inspector Documentation - Plan Summary Plan Summary: Admitting in the intensive care unit discussed with the patient's family were extensively on the bedside including the and the daughter regarding the patient's current conditionsWith ongoing chronic smoker with multiple other comorbidity with the COPD patients pretty much higher risk for more complications
[2017-12-26] MEDS ORDERED: HEPARIN SOD (PORCINE) 5,000 UNIT/ML 1 ML SYRINGE SUBCUT SCH (14:00)
[2017-12-26] MEDS ORDERED: ACETAMINOPHEN 650 MG SUPP.RECT PR PRN (14:01)
[2017-12-26] MEDS ORDERED: PHENYLEPHRINE HCL INJ/PF 10 MG/1 ML SDV ONE ×2 (14:18→20:23)
[2017-12-26] MEDS ORDERED: DEXTROSE 5%-WATER 250 ML with PHENYLEPHRINE HCL 40 MG IV PRN ×2 (14:21)
[2017-12-26] MEDS ORDERED: AZTREONAM 1 GM in DEXTROSE 5%-WATER 50 ML IV ONE (14:30)
[2017-12-26] MEDS ORDERED: HYDROCORTISONE SOD SUCCINATE INJ/PF 100 MG/2 ML SDV IV ONE (15:00)
[2017-12-26] MEDS ORDERED: IBUPROFEN 600 MG TABLET NG ONE (15:00)
[2017-12-26 15:55] LABS: ARTERIAL BLOOD BASE EXCESS -9.8 mmol/L; ARTERIAL BLOOD H2CO3 1.37 mmol/L (1.05-1.35); ARTERIAL BLOOD HCO3 17.9 mmol/L (20-26); ARTERIAL BLOOD O2 SATURATION 87.9 % (94-98); ARTERIAL BLOOD PCO2 45.6 mmHg (35-45); ARTERIAL BLOOD PH 7.21 (7.35-7.45); ARTERIAL BLOOD PO2 64.2 mmHg (80-100); ARTERIAL BLOOD TOTAL CO2 19.3 mmol/L (21-25)
[2017-12-26 15:57] LABS: ARTERIAL BLOOD FIO2 90%
[2017-12-26] MEDS ORDERED: INFLUENZA ADLT QUAD (36MOS+) 2017-18 VAC 0.5 ML SYR IM PRN (16:20)
[2017-12-26] MEDS ORDERED: NOREPINEPHRINE BITARTRATE INJ/PF 4 MG/4 ML SDV IV ONE (16:40)
[2017-12-26] MEDS ORDERED: DEXTROSE 5%-WATER 250 ML with NOREPINEPHRINE BITARTRATE 4 MG IV PRN ×2 (16:57)
[2017-12-26 17:04] LABS: CREATINE KINASE MB 2.01 ng/mL (<4.55); TROPONIN I 0.03 ng/mL
[2017-12-26 17:31] LABS: HEMATOCRIT 32.3 % (36.0-47.0); HEMOGLOBIN 10.8 g/dL (12.0-15.5); MEAN CORPUSCULAR HEMOGLOBIN 29.1 pg (27.0-33.4); MEAN CORPUSCULAR HGB CONC 33.3 g/dL (32.0-36.0); MEAN CORPUSCULAR VOLUME 87 fl (80-97); PLATELET COUNT 161 10^3/uL (150-450); RED BLOOD COUNT 3.71 10^6/uL (3.72-5.28); RED CELL DISTRIBUTION WIDTH 13.8 % (11.5-14.0)
[2017-12-26 17:42] LABS: ALANINE AMINOTRANSFERASE 26 U/L (9-52); ALBUMIN 1.7 g/dL (3.5-5.0); ALKALINE PHOSPHATASE 41 U/L (38-126); ANION GAP 9 (5-19); ASPARTATE AMINO TRANSFERASE 55 U/L (14-36); BILIRUBIN,DIRECT 0.4 mg/dL (0.0-0.4); BILIRUBIN,TOTAL 0.4 mg/dL (0.2-1.3); BLOOD UREA NITROGEN 25 mg/dL (7-20); CARBON DIOXIDE 17 mmol/L (22-30); CHLORIDE 104 mmol/L (98-107); GLUCOSE 73 mg/dL (75-110); POTASSIUM 3.4 mmol/L (3.6-5.0); SODIUM 129.8 mmol/L (137-145); TOTAL PROTEIN 3.3 g/dL (6.3-8.2)
--- NOTE | 2017-12-26 17:47 | XCELERA REPORT ---
[address] [address] Transthoracic Echocardiogram Report Name: BRIDGET FLOYD Age: 67 yrs Gender: Female : 1950 Patient Status: Inpatient Patient Location: ICU^[id number]^A Study Date: 12/26/2017 02:22 PM Height: 55 in Weight: 136 lb BSA: 1.5 m2 Procedure: A complete two-dimensional transthoracic echocardiogram was performed (2D, M-mode, spectral and color flow Doppler). The study was technically difficult with many images being suboptimal in quality. Reason For Study: sepsis/hypotension/aortic stenosis Ordering Physician: ANA MARIA DAWKINS Performed By: Екатерина Stuart Interpretation Summary The study was technically difficult with many images being suboptimal in quality. The left ventricular ejection fraction is normal. There is borderline concentric left ventricular hypertrophy. The left ventricle is grossly normal size. Doppler measurements suggest pseudonormalized left ventricular relaxation, which is associated with grade II/IV or mild to moderate diastolic dysfunction Regional wall motion abnormalities cannot be excluded due to limited visualization. The right ventricular systolic function is normal. The left atrial size is normal. The right atrium is normal. There is a mild amount of mitral regurgitation There is no mitral valve stenosis. There is a mild amount of aortic regurgitation There is no aortic valve stenosis There is a mild amount of tricuspid regurgitation There is moderate pulmonary hypertension by echo Right ventricular systolic pressure is estimated to be elevated at 40- 50mmHg. The aortic root is not well visualized but is probably normal size. The inferior vena cava was not well visualized Minimal pericardial effusion. MMode/2D Measurements & Calculations RVDd: 2.3 cm LVIDd: 3.9 cm FS: 38.9 % Ao root diam: 2.6 cm IVSd: 0.85 cm LVIDs: 2.4 cm EDV(Teich): 65.3 ml LVPWd: 0.87 cm ESV(Teich): 19.6 ml Ao root area: 5.5 cm2 EF(Teich): 69.9 % Doppler Measurements & Calculations MV E max enedelia: MV dec slope: Ao V2 max: AI max enedelia: 50.4 cm/sec 130.1 cm/sec 345.5 cm/sec MV A max enedelia: 206.4 cm/sec2 Ao max PG: AI max P.2 cm/sec MV dec time: 6.8 mmHg 47.7 mmHg MV E/A: 0.62 0.24 sec AI dec slope: 191.4 cm/sec2 AI P1/2t: 528.8 msec LV V1 max PG: PA V2 max: TR max enedelia: 3.2 mmHg 75.2 cm/sec 288.2 cm/sec LV V1 max: PA max P.3 mmHg TR max P.0 cm/sec 34.0 mmHg Left Ventricle The left ventricle is grossly normal size. There is borderline concentric left ventricular hypertrophy. The left ventricular ejection fraction is normal. Doppler measurements suggest pseudonormalized left ventricular relaxation, which is associated with grade II/IV or mild to moderate diastolic dysfunction. Regional wall motion abnormalities cannot be excluded due to limited visualization. Right Ventricle The right ventricle is grossly normal size. There is normal right ventricular wall thickness. The right ventricular systolic function is normal. Atria The right atrium is normal. The left atrial size is normal. Interarterial septum not well visualized and not well dopplered. Cannot comment on ASD/PFO presence. Mitral Valve There is mild mitral leaflet calcification. There is mild mitral annular calcification. There is no mitral valve stenosis. There is a mild amount of mitral regurgitation. Aortic Valve The aortic valve is not well visualized secondary to technical limitations. There is no aortic valve stenosis. There is a mild amount of aortic regurgitation. Tricuspid Valve The tricuspid valve is not well visualized secondary to technical limitations. There is no tricuspid stenosis. There is a mild amount of tricuspid regurgitation. There is moderate pulmonary hypertension by echo. Right ventricular systolic pressure is estimated to be elevated at 40- 50mmHg. Pulmonic Valve The pulmonic valve is not well visualized. Great Vessels The aortic root is not well visualized but is probably normal size. The inferior vena cava was not well visualized. Effusions Minimal pericardial effusion. : ANA MARIA DAWKINS > Naa Ventura
[2017-12-26 17:59] LABS: CALCIUM 6.2 mg/dL (8.4-10.2)
[2017-12-26] MEDS ORDERED: OSELTAMIVIR PHOSPHATE 75 MG CAPSULE PO SCH (18:00)
[2017-12-26 18:13] LABS: ABSOLUTE LYMPHOCYTES# (MANUAL) 0.8 10^3/uL (0.5-4.7); ABSOLUTE MONOCYTES # (MANUAL) 0.3 10^3/uL (0.1-1.4); ABSOLUTE NEUTROPHILS# (MANUAL) 0.3 10^3/uL (1.7-8.2); BAND NEUTROPHILS % (MANUAL) 8 % (3-5); BASOPHILS % (MANUAL) 0 % (0-2); EOSINOPHILS % (MANUAL) 0 % (0-6); LYMPHOCYTES % (MANUAL) 50 % (13-45); MONOCYTES % (MANUAL) 24 % (3-13); SEGMENTED NEUTROPHILS % (MAN) 14 % (42-78); TOTAL CELLS COUNTED 50
[2017-12-26 18:16] LABS: BURR CELLS 2+; PLATELET COMMENT ADEQUATE; PLATELET GIANT PRESENT
[2017-12-26 18:20] LABS: WHITE BLOOD COUNT 1.4 10^3/uL (4.0-10.5)
[2017-12-26] MEDS ORDERED: CALCIUM GLUCONATE 1000 MG/10 ML INJ IV ONE (18:44)
[2017-12-26] MEDS ORDERED: POTASSIUM CHLORIDE 20 MEQ/50 ML RTU IV SCH (20:00)
[2017-12-26] MEDS ORDERED: ACETYLCYSTEINE 20% SOLN 800 MG/4 ML VIAL.NEB NG ONE (20:00)
[2017-12-26 21:13] LABS: ARTERIAL BLOOD BASE EXCESS -20.7 mmol/L; ARTERIAL BLOOD FIO2 85%; ARTERIAL BLOOD H2CO3 1.16 mmol/L (1.05-1.35); ARTERIAL BLOOD HCO3 9.6 mmol/L (20-26); ARTERIAL BLOOD O2 SATURATION 77.8 % (94-98); ARTERIAL BLOOD PCO2 38.7 mmHg (35-45); ARTERIAL BLOOD PO2 60.8 mmHg (80-100); ARTERIAL BLOOD TOTAL CO2 10.8 mmol/L (21-25)
[2017-12-26 21:14] LABS: ARTERIAL BLOOD PH 7.01 (7.35-7.45)
--- NOTE | 2017-12-26 21:28 | PDOC TRANSFER SUMMARY ---
General Admission Date/PCP: 12/26/17 09:12 ANA MARIA DAWKINS MD Admission Date: 12/26/17 Transfer Date: 12/26/17 Accepting Facility: [facility] Resuscitation Status: Full Code - Transfer Diagnosis (1) Septic shock Is this a current diagnosis for this admission?: Yes (2) Multifocal pneumonia Is this a current diagnosis for this admission?: Yes (3) Acute and chronic respiratory failure Is this a current diagnosis for this admission?: Yes (4) Hypertension Is this a current diagnosis for this admission?: Yes (5) Anxiety disorder Is this a current diagnosis for this admission?: Yes (6) Aortic stenosis Is this a current diagnosis for this admission?: Yes (7) Smoker Is this a current diagnosis for this admission?: Yes (8) Carotid artery disorder Is this a current diagnosis for this admission?: Yes (9) Peripheral vascular disease Is this a current diagnosis for this admission?: Yes (10) COPD with acute exacerbation Is this a current diagnosis for this admission?: Yes - Transfer Medications Home Medications: Amlodipine Besylate [Norvasc 10 mg Tablet] 10 mg PO DAILY 12/26/17 Atorvastatin Calcium [Lipitor 40 mg Tablet] 40 mg PO DAILY 12/26/17 Cetirizine HCl [Zyrtec 10 mg Tablet] 10 mg PO DAILYP PRN 12/26/17 Clopidogrel Bisulfate [Plavix 75 mg Tablet] 75 mg PO DAILY 12/26/17 Fluticasone Propionate [Flonase Nasal [place] 50 Mcg/[place]ana 16 gm] 1 spray NASL DAILY 12/26/17 Hydroxyzine HCl [Atarax 25 mg Tablet] 25 mg PO BID 12/26/17 Lorazepam [Ativan 1 mg Tablet] 1 mg PO TID 12/26/17 Losartan Potassium [Cozaar 100 mg Tablet] 100 mg PO DAILY 12/26/17 Metoprolol Tartrate [Lopressor 50 mg Tablet] 50 mg PO BID 12/26/17 Ondansetron HCl [Zofran 4 mg Tablet] 4 mg PO Q6HP PRN 12/26/17 Quetiapine Fumarate [Seroquel] 50 mg PO DAILY 12/26/17 Ropinirole HCl [Requip] 1 mg PO QHS 12/26/17 Spironolactone [Aldactone 25 mg Tablet] 12.5 mg PO BID 12/26/17 Tolterodine Tartrate [Detrol LA] 2 mg PO DAILY 12/26/17 Tramadol HCl [Ultram 50 mg Tablet] 50 mg PO Q6HP PRN 12/26/17 Triamcinolone Acetonide [Aristocort 0.5% Cream 15 gm] 1 applic TP BID 12/26/17 Venlafaxine HCl ER [Effexor Xr 75 mg Cap.sr] 75 mg PO BID 12/26/17 Transfer Medications: Current Medications Acetaminophen (Tylenol 650 Mg Supp) 650 mg ND Q4HP PRN PRN Reason: FEVER >101 Stop: 01/25/18 14:00 Acetylcysteine (Mucomist 20% Soln 800 Mg/4 Ml) 600 mg NG BID [facility] Stop: 12/28/17 10:01 Albuterol/Ipratropium (Duoneb 3 Ml Ampul) 3 ml NEB [id number] [facility] Stop: 01/25/18 11:59 Last Admin: 12/26/17 21:03 Dose: 3 ml Famotidine (Pepcid Inj/Pf 20 Mg/2 Ml Sdv) 20 mg IV QPM [facility] Stop: 01/25/18 17:59 Last Admin: 12/26/17 18:49 Dose: 20 mg Heparin Sodium (Porcine) (Heparin Inj 5,000 Units/Ml 1 Ml Syringe) 5,000 unit SUBCUT Q8 [facility] Stop: 01/25/18 13:59 Last Admin: 12/26/17 14:45 Dose: Not Given Heparin Sodium (Porcine) (Heparin Flush 10 Unit/Ml 5 Ml Disp.Syrg) 30 unit IV .AFTER EACH USE PRN PRN Reason: AFTER EACH INTERMITTENT USE Stop: 01/25/18 13:40 Heparin Sodium (Porcine) (Heparin Flush 10 Unit/Ml 5 Ml Disp.Syrg) 30 unit IV Q8 [facility] Stop: 01/25/18 13:59 Last Admin: 12/26/17 14:49 Dose: Not Given Sodium Chloride (Nacl 0.9% 1000 Ml Iv Soln) 1,000 mls @ 125 mls/hr IV CONTINUOUS PRN PRN Reason: THIS MED IS NOT "PRN" Stop: 01/25/18 08:51 Last Admin: 12/26/17 20:21 Dose: 1,000 ml Levofloxacin/Dextrose (Levaquin Rtu 750 Mg/D5w 150 Ml Premix) 750 mg in 150 mls @ 100 mls/hr IV Q6AM [facility] Stop: 01/03/18 05:59 Midazolam HCl (Versed Rtu 50 Mg/100 Ml Premix Bag) 50 mg in 100 mls @ 0 mls/hr IV CONTINUOUS PRN; Protocol; Titrate PRN Reason: THIS MED IS NOT "PRN" Stop: 01/02/18 10:16 Last Admin: 12/26/17 11:16 Dose: 100 ml Aztreonam 1 gm/ Sodium (Chloride) 100 mls @ 200 mls/hr IV Q8 [facility] Stop: 01/02/18 21:59 Vancomycin HCl 1,250 mg/ (Dextrose) 250 mls @ 166.667 mls/hr IV DAILY [facility] Stop: 01/03/18 09:59 Hard Fat/Phenylephrine 40 mg/ (Dextrose) 250 mls @ 0 mls/hr IV CONTINUOUS PRN; Protocol; Titrate PRN Reason: THIS MED IS NOT "PRN" Stop: 01/25/18 14:20 Last Admin: 12/26/17 14:32 Dose: 40 mg Norepinephrine Bitartrate 4 mg (/ Dextrose) 250 mls @ 0 mls/hr IV CONTINUOUS PRN; Protocol; Titrate PRN Reason: THIS MED IS NOT "PRN" Stop: 01/25/18 16:56 Last Admin: 12/26/17 18:59 Dose: 4 mg Potassium Chloride/Water (Potassium Chloride [place] 20 Meq/50 Ml) 20 meq in 50 mls @ 25 mls/hr IV Q2H [facility] Stop: 12/26/17 23:59 Last Admin: 12/26/17 20:43 Dose: 50 ml Influenza Virus Vaccine Quadrival (Fluzone Adlt Quad [id number] Vac 0.5 Ml Syr) 0.5 ml IM .DISCHARGE PRN PRN Reason: THIS MED IS NOT "PRN" Stop: 01/25/18 16:19 Oseltamivir Phosphate (Tamiflu 75 Mg Capsule) 75 mg PO BID [facility] Stop: 12/31/17 17:59 Last Admin: 12/26/17 20:56 Dose: 75 mg Sodium Chloride (Saline Flush 2.5 Ml Monoject Prefil Syrin) 2.5 ml IV Q8 [facility] Stop: 01/25/18 13:59 Last Admin: 12/26/17 14:49 Dose: 2.5 ml Sodium Chloride (Nacl 0.9% Inj/Pf 10 Ml Sdv) 10 ml IV .AFTER EACH USE PRN PRN Reason: AFTER EACH INTERMITTENT USE Stop: 01/25/18 13:40 - Allergies Allergies/Adverse Reactions: latex [Latex] Allergy (Verified 12/26/17 06:37) rash amoxicillin [Amoxicillin] Adverse Reaction (Verified 12/26/17 06:37) Nausea budesonide [From Symbicort] Adverse Reaction (Verified 12/26/17 06:37) Nausea cephalexin [From Keflex] Adverse Reaction (Verified 12/26/17 06:37) Nausea formoterol [From Symbicort] Adverse Reaction (Verified 12/26/17 06:37) Nausea Penicillins Adverse Reaction (Verified 12/26/17 06:37) Nausea sulfamethoxazole [From Bactrim] Adverse Reaction (Verified 12/26/17 06:37) nausea/ weakness trimethoprim [From Bactrim] Adverse Reaction (Verified 12/26/17 06:37) nausea/ weakness erythromycin Allergy (Uncoded 12/26/17 06:37) Hospital Course Hospital Course: 67-year-old female with a significant medical problem including the history of the COPD chronic smoker with a history of the hypertension's peripheral vascular disease history of the stroke and multiple other medical problems came to the emergency department the 1 day history of the soft fever and patient was in respiratory distress short of breath and hypotensive in patients at this point in the emergency department from the blood count is 1.4 and patient was in septic shock and multifocal pneumonia and respiratory failure patient at this point intubated in the ER and patient was doing ICU. Patient's persistent remain critical require to pressor and received the IV fluid Since echocardiograms suggesting a normal EF Patient's recently was stress test done 3 months back was all stable Patient at this point to remain very critical switch this to pressure and IV fluid and IV antibiotic and patient had very limited choice of antibiotic because of the lower side effect including the patient on vancomycin's this morning and patients develop a rash and stop it and currently on Levaquin and azactum As per discussed with the patient's family about the patient's critical conditions very poor survival family asking for me we can transfer the tertiary center and at this point's patients probably transfer to the [facility] for further evaluate and discussed with the tissue inserter over there Discussed with Dr. Morejon about the patient's current conditions and will transfer Physical Exam Vital Signs: Temp Pulse Resp BP Pulse Ox 99.5 F 117 H 24 H 71/50 L 93 12/26/17 19:41 12/26/17 16:19 12/26/17 18:06 12/26/17 18:06 12/26/17 16:46 Intake & Output 12/25/17 12/26/17 12/27/17 06:59 06:59 06:59 Output Total 295 Balance -295 Weight 61.9 kg General appearance: PRESENT: mild distress Head exam: PRESENT: normocephalic Mouth exam: PRESENT: dry mucosa Respiratory exam: PRESENT: decreased breath sounds GI/Abdominal exam: PRESENT: normal bowel sounds, soft Neurological exam: PRESENT: altered Skin exam: PRESENT: dry Results Laboratory Results: 12/26/17 17:09 12/26/17 12/26/17 12/26/17 10:22 10:51 10:51 WBC 1.1 L* RBC 3.65 L Hgb 10.6 L Hct 31.6 L MCV 87 MCH 29.0 MCHC 33.4 RDW 13.6 Plt Count 205 Seg Neutrophils % Not Reportable Lymphocytes % Not Reportable Monocytes % Not Reportable Eosinophils % Not Reportable Basophils % Not Reportable Absolute Neutrophils Not Reportable Absolute Lymphocytes Not Reportable Absolute Monocytes Not Reportable Absolute Eosinophils Not Reportable Absolute Basophils Not Reportable Carbonic Acid HCO3/H2CO3 Ratio ABG pH ABG pCO2 ABG pO2 ABG HCO3 ABG O2 Saturation ABG Base Excess FiO2 Sodium 132.1 L Potassium 3.2 L Chloride 102 Carbon Dioxide 21 L Anion Gap 9 BUN 23 H Creatinine 1.16 Est GFR ( Amer) 56 L Est GFR (Non-Af Amer) 46 L Glucose 92 Lactic Acid 3.0 H Calcium 7.0 L* Total Bilirubin 0.3 AST 34 ALT 16 Alkaline Phosphatase 56 Total Protein 4.8 L Albumin 2.4 L 12/26/17 12/26/17 12/26/17 13:05 15:38 17:09 WBC 1.4 L* RBC 3.71 L Hgb 10.8 L Hct 32.3 L MCV 87 MCH 29.1 MCHC 33.3 RDW 13.8 Plt Count 161 Seg Neutrophils % Not Reportable Lymphocytes % Not Reportable Monocytes % Not Reportable Eosinophils % Not Reportable Basophils % Not Reportable Absolute Neutrophils Not Reportable Absolute Lymphocytes Not Reportable Absolute Monocytes Not Reportable Absolute Eosinophils Not Reportable Absolute Basophils Not Reportable Carbonic Acid 1.55 H 1.37 H HCO3/H2CO3 Ratio 12:1 13:1 ABG pH 7.18 L* 7.21 L ABG pCO2 51.5 H 45.6 H ABG pO2 70.8 L 64.2 L ABG HCO3 18.7 L 17.9 L ABG O2 Saturation 89.8 L 87.9 L ABG Base Excess -9.6 -9.8 FiO2 90% 90% Sodium Potassium Chloride Carbon Dioxide Anion Gap BUN Creatinine Est GFR ( Amer) Est GFR (Non-Af Amer) Glucose Lactic Acid Calcium Total Bilirubin AST ALT Alkaline Phosphatase Total Protein Albumin 12/26/17 12/26/17 12/26/17 17:09 19:51 21:00 WBC RBC Hgb Hct MCV MCH MCHC RDW Plt Count Seg Neutrophils % Lymphocytes % Monocytes % Eosinophils % Basophils % Absolute Neutrophils Absolute Lymphocytes Absolute Monocytes Absolute Eosinophils Absolute Basophils Carbonic Acid Cancelled 1.16 HCO3/H2CO3 Ratio Cancelled 8:1 ABG pH Cancelled 7.01 L* ABG pCO2 Cancelled 38.7 ABG pO2 Cancelled 60.8 L ABG HCO3 Cancelled 9.6 L ABG O2 Saturation Cancelled 77.8 L ABG Base Excess Cancelled -20.7 FiO2 Cancelled 85% Sodium 129.8 L Potassium 3.4 L Chloride 104 Carbon Dioxide 17 L Anion Gap 9 BUN 25 H Creatinine 1.29 H Est GFR ( Amer) 50 L Est GFR (Non-Af Amer) 41 L Glucose 73 L Lactic Acid Calcium 6.2 L* Total Bilirubin 0.4 AST 55 H ALT 26 Alkaline Phosphatase 41 Total Protein 3.3 L Albumin 1.7 L 12/26/17 12/26/17 12/26/17 10:51 10:51 16:25 Creatine Kinase 430 H 508 H CK-MB (CK-2) 2.52 Troponin I 0.013 12/26/17 16:25 Creatine Kinase CK-MB (CK-2) 2.01 Troponin I 0.030 Impressions: Chest X-Ray 12/26/17 06:52 IMPRESSION: Multifocal pneumonia and/or pulmonary edema pattern worst in the right mid and lower lung. Plan Time Spent: Greater than 30 Minutes - Discussed with tissue inserter and very extensive discussions with the patient's family member regarding the patient's critical conditions and all the risk about transferring the patient
[2017-12-26 21:29] LABS: ALANINE AMINOTRANSFERASE 48 U/L (9-52); ALBUMIN 1.8 g/dL (3.5-5.0); ALKALINE PHOSPHATASE 49 U/L (38-126); ANION GAP 11 (5-19); ASPARTATE AMINO TRANSFERASE 103 U/L (14-36); BILIRUBIN,DIRECT 0.5 mg/dL (0.0-0.4); BILIRUBIN,TOTAL 0.5 mg/dL (0.2-1.3); BLOOD UREA NITROGEN 26 mg/dL (7-20); CARBON DIOXIDE 12 mmol/L (22-30); CHLORIDE 106 mmol/L (98-107); GLUCOSE 58 mg/dL (75-110); SODIUM 128.5 mmol/L (137-145); TOTAL PROTEIN 3.6 g/dL (6.3-8.2)
[2017-12-26] MEDS ORDERED: DEXTROSE 5%-WATER 1000 ML 1,000 ML with SODIUM BICARBONATE 100 MEQ IV PRN ×2 (21:32)
[2017-12-26 21:41] LABS: POTASSIUM 4.6 mmol/L (3.6-5.0)
[2017-12-26 21:43] LABS: CALCIUM 6.8 mg/dL (8.4-10.2)
[2017-12-26] MEDS ORDERED: AZTREONAM 1 GM in NORMAL SALINE 100 ML IV SCH (22:00)
--- NOTE | 2017-12-26 22:40 | PDOC CONSULTATION ---
Consultation Consult Date: 12/26/17 Consult reason:: emergency arterial line insertion in a patient with septic shock History of Present Illness Admission Date/PCP: 12/26/17 09:12 ANA MARIA DAWKINS MD History of Present Illness: This 67-year-old females with a significant history of the hypertension's hyperlipidemia significant anxiety disorder history of the COPD chronic smoker came to see yesterday in the office with a complaining of sore throat and a low- grade fever and patient was started on a Z-Mendez and patients at this point call back and says she is feeling short of breath in the evening time and directed to the emergency department to go but patients came this morningWith the complaining of her shortness of the breath and patient was found hypotensive's and septic shock and the patient's was intubated in the ER Patient's white count is 1.6 but patient's lactic acid is more than 4 Patient's chest x-ray was stable He did not take a flu shot this year According to the patient's when he give her Tylenol patient's fever come down and feel better but this morning patients feel more sick and just recently brought to the patient in the ER When I saw the patient in ER before the intubation patient was alert awake but a little anxious but patient's respiratory rate was 30+ Patient's denied any chest pain Patient's family and the bedside Patient also see a [place] cardiology and recently have a stress test was done at 3 months back was all stable and her echocardiogram was done Patient also see a [place] vascular surgeon for the carotid disease and peripheral vascular disease She is in septic shock, intubated and needs an arterial line for which I have been consulted. Past Medical History Cardiac Medical History: Reports: Hyperlipidema, Hypertension, Heart Murmur Pulmonary Medical History: Reports: Chronic Obstructive Pulmonary Disease (COPD) Neurological Medical History: Reports: Ischemic CVA, Migraine GI Medical History: Reports: Diverticulitis Musculoskeltal Medical History: Reports: Arthritis Psychiatric Medical History: Reports: Depression, General Anxiety Disorder Past Surgical History Past Surgical History: Reports: Colostomy, Hysterectomy Social History Smoking Status: Current Every Day Smoker Frequency of Alcohol Use: Occasional Hx Recreational Drug Use: No Hx Prescription Drug Abuse: No - Advance Directive Resuscitation Status: Full Code Family History Family History: Reviewed & Not Pertinent Parental Family History Reviewed: No Children Family History Reviewed: Unknown Sibling(s) Family History Reviewed.: Unknown Medication/Allergy Home Medications: Amlodipine Besylate [Norvasc 10 mg Tablet] 10 mg PO DAILY 12/26/17 Atorvastatin Calcium [Lipitor 40 mg Tablet] 40 mg PO DAILY 12/26/17 Cetirizine HCl [Zyrtec 10 mg Tablet] 10 mg PO DAILYP PRN 12/26/17 Clopidogrel Bisulfate [Plavix 75 mg Tablet] 75 mg PO DAILY 12/26/17 Fluticasone Propionate [Flonase Nasal [place] 50 Mcg/[place] 16 gm] 1 spray NASL DAILY 12/26/17 Hydroxyzine HCl [Atarax 25 mg Tablet] 25 mg PO BID 12/26/17 Lorazepam [Ativan 1 mg Tablet] 1 mg PO TID 12/26/17 Losartan Potassium [Cozaar 100 mg Tablet] 100 mg PO DAILY 12/26/17 Metoprolol Tartrate [Lopressor 50 mg Tablet] 50 mg PO BID 12/26/17 Ondansetron HCl [Zofran 4 mg Tablet] 4 mg PO Q6HP PRN 12/26/17 Quetiapine Fumarate [Seroquel] 50 mg PO DAILY 12/26/17 Ropinirole HCl [Requip] 1 mg PO QHS 12/26/17 Spironolactone [Aldactone 25 mg Tablet] 12.5 mg PO BID 12/26/17 Tolterodine Tartrate [Detrol LA] 2 mg PO DAILY 12/26/17 Tramadol HCl [Ultram 50 mg Tablet] 50 mg PO Q6HP PRN 12/26/17 Triamcinolone Acetonide [Aristocort 0.5% Cream 15 gm] 1 applic TP BID 12/26/17 Venlafaxine HCl ER [Effexor Xr 75 mg Cap.sr] 75 mg PO BID 12/26/17 Allergies/Adverse Reactions: latex [Latex] Allergy (Verified 12/26/17 06:37) rash amoxicillin [Amoxicillin] Adverse Reaction (Verified 12/26/17 06:37) Nausea budesonide [From Symbicort] Adverse Reaction (Verified 12/26/17 06:37) Nausea cephalexin [From Keflex] Adverse Reaction (Verified 12/26/17 06:37) Nausea formoterol [From Symbicort] Adverse Reaction (Verified 12/26/17 06:37) Nausea Penicillins Adverse Reaction (Verified 12/26/17 06:37) Nausea sulfamethoxazole [From Bactrim] Adverse Reaction (Verified 12/26/17 06:37) nausea/ weakness trimethoprim [From Bactrim] Adverse Reaction (Verified 12/26/17 06:37) nausea/ weakness erythromycin Allergy (Uncoded 12/26/17 06:37) Review of Systems ROS unobtainable: Due to endotracheal tube Physical Exam Vital Signs: Temp Pulse Resp BP Pulse Ox 99.5 F 102 H 26 H 71/50 L 93 12/26/17 19:41 12/26/17 21:05 12/26/17 21:05 12/26/17 18:06 12/26/17 16:46 Intake & Output 12/25/17 12/26/17 12/27/17 06:59 06:59 06:59 Output Total 295 Balance -295 Weight 61.9 kg General appearance: PRESENT: other - acutely ill-looking on mechanical ventilation. Head exam: PRESENT: atraumatic Eye exam: PRESENT: conjunctiva pink Ear exam: PRESENT: normal external ear exam Mouth exam: PRESENT: other - orotracheal tube in-situ Respiratory exam: PRESENT: clear to auscultation kelly Cardiovascular exam: PRESENT: +S1, +S2 GI/Abdominal exam: PRESENT: soft Neurological exam: PRESENT: other - sedated, on mechanical ventilation Skin exam: PRESENT: cyanosis, mottled Results Laboratory Results: 12/26/17 17:09 12/26/17 20:34 12/26/17 12/26/17 12/26/17 10:22 10:51 10:51 WBC 1.1 L* RBC 3.65 L Hgb 10.6 L Hct 31.6 L MCV 87 MCH 29.0 MCHC 33.4 RDW 13.6 Plt Count 205 Seg Neutrophils % Not Reportable Lymphocytes % Not Reportable Monocytes % Not Reportable Eosinophils % Not Reportable Basophils % Not Reportable Absolute Neutrophils Not Reportable Absolute Lymphocytes Not Reportable Absolute Monocytes Not Reportable Absolute Eosinophils Not Reportable Absolute Basophils Not Reportable Carbonic Acid HCO3/H2CO3 Ratio ABG pH ABG pCO2 ABG pO2 ABG HCO3 ABG O2 Saturation ABG Base Excess FiO2 Sodium 132.1 L Potassium 3.2 L Chloride 102 Carbon Dioxide 21 L Anion Gap 9 BUN 23 H Creatinine 1.16 Est GFR ( Amer) 56 L Est GFR (Non-Af Amer) 46 L Glucose 92 Lactic Acid 3.0 H Calcium 7.0 L* Total Bilirubin 0.3 AST 34 ALT 16 Alkaline Phosphatase 56 Total Protein 4.8 L Albumin 2.4 L 12/26/17 12/26/17 12/26/17 13:05 15:38 17:09 WBC 1.4 L* RBC 3.71 L Hgb 10.8 L Hct 32.3 L MCV 87 MCH 29.1 MCHC 33.3 RDW 13.8 Plt Count 161 Seg Neutrophils % Not Reportable Lymphocytes % Not Reportable Monocytes % Not Reportable Eosinophils % Not Reportable Basophils % Not Reportable Absolute Neutrophils Not Reportable Absolute Lymphocytes Not Reportable Absolute Monocytes Not Reportable Absolute Eosinophils Not Reportable Absolute Basophils Not Reportable Carbonic Acid 1.55 H 1.37 H HCO3/H2CO3 Ratio 12:1 13:1 ABG pH 7.18 L* 7.21 L ABG pCO2 51.5 H 45.6 H ABG pO2 70.8 L 64.2 L ABG HCO3 18.7 L 17.9 L ABG O2 Saturation 89.8 L 87.9 L ABG Base Excess -9.6 -9.8 FiO2 90% 90% Sodium Potassium Chloride Carbon Dioxide Anion Gap BUN Creatinine Est GFR ( Amer) Est GFR (Non-Af Amer) Glucose Lactic Acid Calcium Total Bilirubin AST ALT Alkaline Phosphatase Total Protein Albumin 12/26/17 12/26/17 12/26/17 17:09 19:51 20:34 WBC RBC Hgb Hct MCV MCH MCHC RDW Plt Count Seg Neutrophils % Lymphocytes % Monocytes % Eosinophils % Basophils % Absolute Neutrophils Absolute Lymphocytes Absolute Monocytes Absolute Eosinophils Absolute Basophils Carbonic Acid Cancelled HCO3/H2CO3 Ratio Cancelled ABG pH Cancelled ABG pCO2 Cancelled ABG pO2 Cancelled ABG HCO3 Cancelled ABG O2 Saturation Cancelled ABG Base Excess Cancelled FiO2 Cancelled Sodium 129.8 L 128.5 L Potassium 3.4 L 4.6 D Chloride 104 106 Carbon Dioxide 17 L 12 L Anion Gap 9 11 BUN 25 H 26 H Creatinine 1.29 H 1.53 H Est GFR ( Amer) 50 L 41 L Est GFR (Non-Af Amer) 41 L 34 L Glucose 73 L 58 L Lactic Acid Calcium 6.2 L* 6.8 L* Total Bilirubin 0.4 0.5 AST 55 H 103 H ALT 26 48 Alkaline Phosphatase 41 49 Total Protein 3.3 L 3.6 L Albumin 1.7 L 1.8 L 12/26/17 21:00 WBC RBC Hgb Hct MCV MCH MCHC RDW Plt Count Seg Neutrophils % Lymphocytes % Monocytes % Eosinophils % Basophils % Absolute Neutrophils Absolute Lymphocytes Absolute Monocytes Absolute Eosinophils Absolute Basophils Carbonic Acid 1.16 HCO3/H2CO3 Ratio 8:1 ABG pH 7.01 L* ABG pCO2 38.7 ABG pO2 60.8 L ABG HCO3 9.6 L ABG O2 Saturation 77.8 L ABG Base Excess -20.7 FiO2 85% Sodium Potassium Chloride Carbon Dioxide Anion Gap BUN Creatinine Est GFR ( Amer) Est GFR (Non-Af Amer) Glucose Lactic Acid Calcium Total Bilirubin AST ALT Alkaline Phosphatase Total Protein Albumin 12/26/17 12/26/17 12/26/17 10:51 10:51 16:25 Creatine Kinase 430 H 508 H CK-MB (CK-2) 2.52 Troponin I 0.013 12/26/17 16:25 Creatine Kinase CK-MB (CK-2) 2.01 Troponin I 0.030 Impressions: Chest X-Ray 12/26/17 06:52 IMPRESSION: Multifocal pneumonia and/or pulmonary edema pattern worst in the right mid and lower lung. Assessment & Plan - Diagnosis (1) Multifocal pneumonia Is this a current diagnosis for this admission?: Yes (2) Septic shock Is this a current diagnosis for this admission?: Yes (3) Acute and chronic respiratory failure Is this a current diagnosis for this admission?: Yes - Plan Summary Plan Summary: A femoral arterial line will be placed. Informed consent obtained from family.
--- NOTE | 2017-12-26 22:45 | Operative Report ---
Operative Report DATE OF SURGERY: 12/26/17 PREOPERATIVE DIAGNOSIS: Septic Shock POSTOPERATIVE DIAGNOSIS: Septic Shock OPERATION: Right femoral arterial line placement SURGEON: TERE NEWSOME ANESTHESIA: Local TISSUE REMOVED OR ALTERED: none COMPLICATIONS: none ESTIMATED BLOOD LOSS: <5ml PROCEDURE: The procedure was done by the bedside. The patient is on mechanical ventilation. She was positioned supine. Bilateral groins were prepped with chloraprep and sterile drapes laid. Under sterile aseptic condirtions with real- time ultrasound guidance, the right femoral artery was localized and accessed with a needle and a guide-wire passed through the needle into the artery. The femoral catheter was passed over the guidewire into the artery and the guide- wire removed. The catheter was connected to the transducer line with arterial waveform observed. The catheter was anchored to the skin with 3-0 vicryl and a biopatch and tegaderm dressing applied.
[2017-12-27 00:14] VITALS: BP 74/45
[2017-12-27] MEDS ORDERED: LEVOFLOXACIN 750 MG/D5W RTU 750 MG/150 ML RTUPB IV SCH (06:00)
[2017-12-27] MEDS ORDERED: VANCOMYCIN HCL 1,250 MG in DEXTROSE 5%-WATER 250 ML IV SCH (10:00)
[2017-12-27] MEDS ORDERED: ACETYLCYSTEINE 20% SOLN 800 MG/4 ML VIAL.NEB NG SCH (10:00)
== END 2017-12-26 23:35 | disposition short-term general hospital (02) | DRG 871 ==
LOC: ER 06:27 → EH 09:12 → ICU 12:00
PROVIDERS: ADMIT Family Medicine; ATTEND Family Medicine
PROC: 0BH17EZ Insertion of Endotracheal Airway into Trachea, Via Natural or Artificial Opening (ICD-10-PCS; principal; 2017-12-26)
PROC: 5A1935Z Respiratory Ventilation, Less than 24 Consecutive Hours (ICD-10-PCS; 2017-12-26)
PROC: 02HV33Z Insertion of Infusion Device into Superior Vena Cava, Percutaneous Approach (ICD-10-PCS; 2017-12-26)
DX: A41.9 Sepsis, unspecified organism (principal); J18.9 Pneumonia, unspecified organism; J96.21 Acute and chronic respiratory failure with hypoxia; R65.21 Severe sepsis with septic shock; N17.9 Acute kidney failure, unspecified; J44.1 Chronic obstructive pulmonary disease with (acute) exacerbation; J44.0 Chronic obstructive pulmonary disease with (acute) lower respiratory infection; I10 Essential (primary) hypertension; F41.1 Generalized anxiety disorder; I35.0 Nonrheumatic aortic (valve) stenosis; E78.5 Hyperlipidemia, unspecified; I73.9 Peripheral vascular disease, unspecified; F17.200 Nicotine dependence, unspecified, uncomplicated; F17.210 Nicotine dependence, cigarettes, uncomplicated; M19.90 Unspecified osteoarthritis, unspecified site; Z90.710 Acquired absence of both cervix and uterus; Z86.73 Personal history of transient ischemic attack (TIA), and cerebral infarction without residual deficits; Z79.899 Other long term (current) drug therapy; Z88.0 Allergy status to penicillin; Z88.2 Allergy status to sulfonamides; Z88.1 Allergy status to other antibiotic agents; Z88.3 Allergy status to other anti-infective agents; Z91.040 Latex allergy status
CPT/HCPCS: 36415; 71045; 80053; 81001; 82550; 82553; 82803; 82962; 83605; 84484; 85025; 85610; 85730; 86603; 87040; 87070; 87077; 87086; 87186; 87205; 93005; 93010; 93306; 94002; 94640; 94660; 96365; 96375; 99291; C1751; J0610; J1720; J1956; J2250; J2370; J2930; J3370; J3480; J3490; J7030; J7060; J7120; J7620; S0028